=== PATIENT | female | born 1985 | race Two or more races ===

== ENCOUNTER 2017-06-13 18:43 | Emergency (ER) | payer BC ==
[2017-06-13] MEDS ORDERED: Levothyroxine 100 MCG Tab PO STA (19:41)
[2017-06-13] MEDS ORDERED: Hydrocortisone Sodium Succinate 100 MG/2 ML SDV IM STA (19:52)
--- NOTE | 2017-06-13 20:06 | EDM.PDOC ---
ED HPI GENERAL MEDICAL PROBLEM - General Chief Complaint: Headache Stated Complaint: HEADACHE HARD TO SWALLOW Time Seen by Provider: 06/13/17 19:13 Source of Information: Reports: Patient, Family History Limitations: Reports: No Limitations - History of Present Illness INITIAL COMMENTS - FREE TEXT/NARRATIVE: The patient states that she has a benign pituitary tumor, status post 3 surgeries to resect most of it, but not all. She states that she is on hydrocortisone 15 mg po QPM and levothyroxin 100 g po Qday. She states that she is visiting from [place], [place], and that she forgot to bring these medicines, and that she has not taken them since Wednesday night, 06/11/2017. She states that she now has pain in her back extending to her left shoulder and up to her head, that her hands hurt, that she has difficulty swallowing, and that all of her nerves are hurting. She acknowledges that she has had these same symptoms for 5 years, that she attributes to her pituitary tumor, but also acknowledges that her doctors don't think that her symptoms have anything to do with her pituitary tumor. She acknowledges that she has a history of anxiety, for which she has been taking citalopram for the past 2 months, and her doctors have also recommended acupuncture. The patient also notes that she believes that due to her symptoms, which has caused her to miss a lot of work, that she will be losing her job soon. When she explained this, she started crying. Here in the ED, the patient is hemodynamically stable, however, it is noted that her oxygen saturation is 100% on room air. The patient states that she will be back home in [place] by tomorrow night, 06/14/2017. Generalized Pain Score (Numeric/FACES): 10 - Related Data Allergies Allergy/AdvReac Type Severity Reaction Status Date / Time No Known Allergies Allergy Verified 06/13/17 19:06 Home Meds: Home Meds Hydrocortisone 5 mg PO BEDTIME 06/13/17 [History] Hydrocortisone 10 mg PO DAILY 06/13/17 [History] Levothyroxine [Synthroid] 100 mcg PO DAILY 06/13/17 [History] Past Medical History Neurological History: Reports: Other (See Below) (Pituitary adenoma) Psychiatric History: Reports: Anxiety Endocrine/Metabolic History: Reports: Hypothyroidism - Past Surgical History Head Surgeries/Procedures: Reports: Other (See Below) (Excision of pituitary adenoma x 3) GI Surgical History: Reports: Hernia, Abdominal Social & Family History - Tobacco Use Smoking Status *Q: Current Every Day Smoker Years of Tobacco use: 18 Packs/Tins Daily: 0.3 Packs/Tins Daily Comment: Down from 1 ppd - Caffeine Use Caffeine Use: Reports: Coffee, Energy Drinks - Alcohol Use Alcohol Use History: No - Recreational Drug Use Recreational Drug Use: Yes Drug Use in Last 12 Months: Yes Recreational Drug Type: Reports: Marijuana/Hashish (last = 1 week ago) Other Recreational Drug Type: used 1 week ago - Living Situation & Occupation Living situation: Reports: Single, with Significant Other (Boyfriend and his father) Occupation: Employed ([employer]) ED ROS GENERAL - Review of Systems Review Of Systems: ROS reveals no pertinent complaints other than HPI. ED EXAM, GENERAL - Physical Exam Exam: See Below Exam Limited By: No Limitations General Appearance: Alert, WD/WN, Anxious Eye Exam: Bilateral Eye: Normal Inspection Ears: Normal External Exam, Hearing Grossly Normal Nose: Normal Inspection, No Blood Throat/Mouth: Normal Inspection, Normal Lips, Normal Voice, No Airway Compromise Head: Atraumatic, Normocephalic Neck: Normal Inspection, Full Range of Motion Respiratory/Chest: No Respiratory Distress, Lungs Clear, Normal Breath Sounds, No Accessory Muscle Use Cardiovascular: Normal Peripheral Pulses, Regular Rate, Rhythm, No Gallop, No JVD, No Murmur, No Rub Peripheral Pulses: 4+: Radial (L), Radial (R) GI/Abdominal: Normal Bowel Sounds, Soft, Non-Tender, No Organomegaly, No Distention, No Abnormal Bruit, No Mass (Female) Exam: Deferred Rectal (Female) Exam: Deferred Back Exam: Normal Inspection, Full Range of Motion, NT Extremities: Normal Inspection, Normal Range of Motion, No Pedal Edema, Normal Capillary Refill Neurological: Alert, Oriented, Normal Cognition, No Motor/Sensory Deficits Psychiatric: Normal Affect, Anxious, Tearful Skin Exam: Warm, Dry, Intact, Normal Color, No Rash Course - Vital Signs Last Recorded V/S: Last Vital Signs Temp 36.2 C 06/13/17 19:14 Pulse 52 L 06/13/17 19:14 Resp 20 06/13/17 19:14 BP 122/72 06/13/17 19:14 Pulse Ox 100 06/13/17 19:14 - Orders/Labs/Meds Meds: Medications Discontinued Medications Generic Name Dose Route Start Last Admin Trade Name Dora GUTIÉRREZ Reason Stop Dose Admin Hydrocortisone 15 mg 06/13/17 19:39 Cortef PO 06/13/17 19:40 ONETIME STA Hydrocortisone Sodium Succinate 15 mg 06/13/17 19:52 06/13/17 20:00 Solu-Cortef IM 06/13/17 19:53 15 mg ONETIME STA Administration Levothyroxine Sodium 100 mcg 06/13/17 19:41 06/13/17 20:00 Synthroid PO 06/13/17 19:42 100 mcg ONETIME STA Administration - Re-Assessments/Exams Free Text/Narrative Re-Assessment/Exam: 06/13/17 20:00 The patient appears to be suffering from substantial anxiety. She has been on citalopram for the past 2 months - the dosage may need to be adjusted, and I discussed with her that there are other medications that may be beneficial as well, including Buspar. I explained that I do not believe that the symptoms that the patient is presenting with has anything to do with her pituitary tumor or lack of taking hydrocortisone and levothyroxine for the past 2 days. This appeas to be in line with what her doctors in [place] believe, as well. Nevertheless, we will give the patient 15 mg hydrocortisone and 100 g levothyroxine here in the ED. She states that she will be back home in [place] by tomorrow night, therefore she does not need a prescription for additional medication. I had initially ordered 15 mg oral hydrocortisone, however, I'm told that we do not have oral hydrocortisone in this facility. I have therefore ordered 15 mg IM. Departure - Departure Time of Disposition: 20:02 Disposition: Home, Self-Care 01 Condition: Good Clinical Impression: Hyperventilation syndrome, Medication requested - Discharge Information Instructions: Hyperventilation Referrals: PCP,Not In Area [Primary Care Provider] - Forms: ED Department Discharge Additional Instructions: You were seen in the emergency room for pain in her back, left shoulder and head , along with painful hands, difficulty swallowing, and generalized nerve pain. Based on your history and physical examination, your symptoms are MOST LIKELY due to hyperventilation syndrome, caused by anxiety. Your symptoms have nothing to do with your pituitary tumor or missing your hydrocortisone/levothyroxin for 2 days. You were given a single dose of both hydrocortisone and levothyroxin in the ED. Resume your usual medications once you return home to [place]. We strongly recommend that you follow-up with the doctor that prescribes your citalopram to discuss dosage adjustment and other treatment options for anxiety. If any other problems, please do not hesitate to return to the ER.
== END 2017-06-13 20:30 | disposition home or self-care (01) ==
LOC: JD.ED 18:43
DX: F45.8 Other somatoform disorders (principal); F17.210 Nicotine dependence, cigarettes, uncomplicated; E03.9 Hypothyroidism, unspecified; Z79.52 Long term (current) use of systemic steroids; Z79.899 Other long term (current) drug therapy
CPT/HCPCS: 96372; 99284; A9270; J1720